=== PATIENT | male | born 1970 | race Caucasian/White ===

== ENCOUNTER 2021-11-05 16:47 | Emergency (ER) | payer OTHER ==
[2021-11-05] MEDS ORDERED: Ketorolac 30 MG/ML SDV IM ONE (17:36)
[2021-11-05] MEDS ORDERED: Cyclobenzaprine 10 MG Tab PO ONE (17:37)
== END 2021-11-05 18:37 | disposition home or self-care (01) ==
LOC: JP.ED 16:47
DX: S83.92XA Sprain of unspecified site of left knee, initial encounter (principal); Z79.899 Other long term (current) drug therapy; Z72.0 Tobacco use; X50.1XXA Overexertion from prolonged static or awkward postures, initial encounter
CPT/HCPCS: 73562-26-LT; 73562-LT; 96372; 99281; 99283-25; A9270-GY; J1885